=== PATIENT | male | born 1955 | race African-American/Black ===

== ENCOUNTER → 2017-01-31 | Day surgery (SDC) | payer OTHER ==
[~2017-01-31] MED LIST: LOSARTAN POTASS50 MG PO; SENNA PO
--- NOTE | ~2017-01-31 | OR ---
Unit #: [id number] #: [id number] Patient: VAZQUEZ GOULD [id number] [address] [address] [id number] O MR#: [id number] NAME: VAZQUEZ GOULD ROOM: Date of Procedure: 01/31/2017 Admission Date: 01/31/2017 Surgeon: Mandeep Goddard M.D. : 1955 Attending Physician: Mandeep Goddard M.D. Primary Care Physician: [facility] [[email or web address] PROCEDURE OPERATIVE NOTE PROCEDURE Colonoscopy with biopsy. INDICATIONS 61-year-old gentleman with history of occult blood in the stool undergoing colonoscopy. MEDICATIONS Monitored anesthesia. POSTOP FINDINGS 1. Possible small polyp on IC valve. Biopsies taken for confirmation. 2. Diverticulosis. 3. Very poor prep. Small or flat polyp could have been missed. PLAN Repeat colonoscopy in one year. DESCRIPTION OF PROCEDURE Patient was explained the procedure risks and benefits along with risks and benefits of anesthesia. He was brought to endoscopy room. Propofol anesthesia was given. Rectal exam was done, which was normal. Colonoscope was lubricated and passed through the rectum and advanced under direct vision all the way to cecum. Cecum was identified by ileocecal valve and appendiceal orifice. Ileocecal valve showed some prominence, possibly a small polyp, removed with biopsy forceps. Prep was very poor. Large areas were not well visualized. I retroflexed in the rectum and small hemorrhoids seen. Scope was gently pulled out. He tolerated it well. Dictated by... Vivek Albarran/raghavendra TD: 02/01/2017 09:42 JOB #: [id number] Unit #: [id number] #: [id number] Patient: VAZQUEZ GOULD PROCEDURE OPERATIVE NOTE Page 1 of 1 X Mandeep Goddard MD X PROCEDURE OPERATIVE NOTE
--- NOTE | ~2017-01-31 | OR ---
Unit #: [id number] #: [id number] Patient: VAZQUEZ GOULD [id number] [address] [address] [id number] O MR#: [id number] NAME: VAZQUEZ GOULD. ROOM: Date of Procedure: 01/30/2017 Admission Date: 01/31/2017 Surgeon: Mandeep Goddard M.D. : 1955 Attending Physician: Mandeep Goddard M.D. Primary Care Physician: [facility] OPERATIVE REPORT PROCEDURE PERFORMED Colonoscopy with biopsies. INDICATIONS FOR PROCEDURE A 61-year-old gentleman with history of occult blood in the stool, undergoing colonoscopy. MEDICATIONS Monitored anesthesia. POSTOPERATIVE FINDINGS 1. Possible small polyp on the IC valve. Biopsies taken for confirmation. 2. Diverticulosis. 3. Very poor prep. Smaller polyp could have been missed. PLAN Repeat colonoscopy in 1 year. DESCRIPTION OF PROCEDURE The patient was explained of the procedure, risks, and benefits along with the risks and benefits of anesthesia. He was brought to the endoscopy room. Propofol anesthesia was given. Rectal exam was done, which was normal. Colonoscope was lubricated, passed up the rectum, advanced under direct vision all the way to the cecum. Cecum was identified by ileocecal valve and appendiceal orifice. Ileocecal valve shows some prominence, possible small polyp removed using biopsy forceps. Prep was very poor. Large areas were not well visualized. I retroflexed in the rectum, small hemorrhoids seen. Scope was gently pulled out. He tolerated it well. Dictated by... Vivek Albarran/china TD: 01/31/2017 16:33 JOB #: [id number] Unit #: [id number] #: [id number] Patient: VAZQUEZ GOULD OPERATIVE REPORT Page 1 of 1 X Mandeep Goddard MD X PROCEDURE OPERATIVE NOTE
== END | disposition home or self-care (01) ==
LOC: COPS 08:17
DX: K63.89 Other specified diseases of intestine (principal); K57.30 Diverticulosis of large intestine without perforation or abscess without bleeding; I10 Essential (primary) hypertension; F17.210 Nicotine dependence, cigarettes, uncomplicated; Z86.73 Personal history of transient ischemic attack (TIA), and cerebral infarction without residual deficits; Z79.899 Other long term (current) drug therapy
CPT/HCPCS: 88305; J2250